=== PATIENT | female | born 1950 | race Caucasian/White ===

== ENCOUNTER 2022-11-04 06:03 | Inpatient (IN) ==
[~2022-11-04 06:03] MED LIST: Buffered Lidocaine 1% SYRIN 1 ml INTRADERM ONE; HYDROmorphone 1 MG/1 ML SYRINGE IV PRN; Lactated Ringers 1000 ml BAG 1,000 ML IV SCH; Naloxone 0.4 mg VIAL 0.4 mg/ml 1 ml VIAL IV PRN; Ondansetron 4 mg VIAL 2 MG/ML 2 ml VIAL IV PRN; fentaNYL 100 mcg/2 ml 50 MCG/ML VIAL IV PRN
[2022-11-04] MEDS ORDERED: Heparin 5000 UNITS/ML 1 mL VIAL ONE (06:29)
[2022-11-04] MEDS ORDERED: Midazolam 2 mg/2 ml VIAL 1 mg/ml 2 ml VIAL (2 mg) ONE (06:46)
[2022-11-04] MEDS ORDERED: Lidocaine 2% PF 5 ML VIAL ONE (06:46)
[2022-11-04] MEDS ORDERED: Ondansetron 4 mg VIAL 2 MG/ML 2 ml VIAL ONE (06:46)
[2022-11-04] MEDS ORDERED: Propofol 10 MG/ML 20 ML BTL ONE (06:46)
[2022-11-04] MEDS ORDERED: Dexamethasone IV 4 MG/ML VIAL 1 ml VIAL ONE (06:46)
[2022-11-04] MEDS ORDERED: fentaNYL 100 mcg/2 ml 50 MCG/ML VIAL ONE (06:46)
[2022-11-04] MEDS ORDERED: Rocuronium 50 mg VIAL 10 mg/ml 5 ml VIAL (50 mg) ONE ×2 (06:47→08:28)
[2022-11-04] MEDS ORDERED: Bupivacaine 0.25% EPI 200,000 30 ML SDV ONE (07:00)
[2022-11-04] MEDS ORDERED: Acetaminophen IV 1 GM/100ML 1,000 MG/100 ML BAG IV ONE (08:24)
[2022-11-04 11:30] VITALS: BP 145/92
== END 2022-11-05 10:30 | disposition home or self-care (01) | DRG 331 ==
LOC: AA 06:03
PROVIDERS: ADMIT Surgery; ATTEND Surgery